=== PATIENT | male | born 1965 | race Hispanic/Latino ===

== ENCOUNTER 2024-03-10 23:52 | Inpatient (IN) | payer SELFPAY ==
[2024-03-11] MEDS ORDERED: NA CHLORIDE 0.9% 1,000 ML ONE ×3 (01:27→12:16)
[2024-03-11 01:30] LABS: Absolute Eosinophils 0.1 K/uL (0-0.5); Absolute Lymphocytes (CBC) 0.7 K/uL (0.7-4.9); Absolute Monocytes 0.8 K/uL (0.1-1.3); Absolute Neutrophil 12.5 K/uL (1.8-8.0); Basophils % 0.2 % (0-1.3); Eosinophils % 0.5 % (0-4.4); Hemoglobin 13.3 g/dL (13.6-17.9); Lymphocytes % 4.7 % (15.3-44.8); MCH 23.9 pg (27.0-35.0); MCV 77.2 fL (80-100); MPV 9.6 fL (7.6-11.3); Neutrophils % 88.6 % (41.7-73.7); Platelets 249 thou/uL (152-406); RBC Red Blood Cell Count 5.57 M/uL (4.33-5.43); Red Cell Distribution Width 14.4 % (12.1-15.2)
[2024-03-11 01:45] LABS: ALT/SGPT 38 U/L (16-61); AST/SGOT 13 U/L (15-37); Albumin 3.6 g/dL (3.4-5.0); Albumin/Globulin Ratio 1.1 (1.1-1.8); Alkaline Phosphatase 81 U/L (45-117); Anion Gap 10.3 mEq/L (5.0-15.0); BUN Blood Urea Nitrogen 20 mg/dL (7-18); Bicarbonate 27 mEq/L (21-32); Bilirubin Total 0.3 mg/dL (0.2-1.0); Creatine Phosphokinase 99 U/L (39-308); Globulin 3.3 g/dL (2.3-3.5); Glomerular Filtration Rate 60 ml/min (=/>90); Glucose Level 336 mg/dL (74-106); Potassium 4.3 mEq/L (3.5-5.1); Protein, Total 6.9 g/dL (6.4-8.2); Sodium Level 136 mEq/L (136-145); Troponin High Sensitivity 3.7 pg/mL (<58.9)
[2024-03-11 02:03] LABS: Bilirubin Direct < 0.2 mg/dL (0-0.2); Bilirubin Indirect, Calculated 0.1 mg/dL (0.2-0.8)
[2024-03-11 02:22] LABS: Band Neutrophils 22 % (0-1); Blood Morphology Comment NOT SEEN (NOT SEEN); Differential Total Cells Count 100; Lymphocytes 8 % (15-42); Monocytes 6 % (0-10); Platelet Estimate ADEQ; Segmented Neutrophils 64 % (40-80)
[2024-03-11 02:44] LABS: PT Prothrombin Time 10.6 SECONDS (9.4-12.5); Protime INR 0.94
[2024-03-11] MEDS ORDERED: PIPERACIL/TAZO 3.375 GM VIAL IV ONE (03:40)
[2024-03-11] MEDS ORDERED: NA CHLORIDE 0.9% 100 ML ONE (03:40)
--- NOTE | 2024-03-11 04:25 | RAD REPORT ---
CT CHEST ABDOMEN PELVIS WITH IV CONTRAST CLINICAL INDICATIONS: Bandemia, vomiting COMPARISON: None TECHNIQUE: CT images of the chest, abdomen and pelvis were obtained following administration of intra venous contrast. Multiplanar reformats were provided. Dose lowering techniques such as automated exposure control, iterative reconstruction, and mA and/or kV adjustment for patient size was utilized for this examination. CHEST FINDINGS: LOWER NECK: Unremarkable. AIRWAYS: Trachea and mainstem bronchi are patent. LUNGS/PLEURA: Mild dependent changes at bilateral lower lobes. No focal air space consolidation, mass , or nodules present. No pleural effusions or pneumothorax. VASCULATURE: No evidence of thoracic aortic aneurysm or dissection. MEDIASTINUM/NODES: No pathologic adenopathy. HEART: Normal heart size. No pericardial effusion. OSSEOUS/CHEST WALL: No acute findings. No compression deformity. ABDOMEN/PELVIS FINDINGS: LIVER: Unremarkable. BILIARY: Unremarkable. PANCREAS: Unremarkable. SPLEEN: Unremarkable. ADRENALS: Unremarkable. KIDNEYS/URETERS: Unremarkable. BOWEL/STOMACH: Sigmoid diverticulosis. Mild circumferential wall thickening at mid sigmoid colon and hepatic flexure with minimal pericolonic stranding. Fluid diffusely in small bowel and colon. There is mild circumferential wall thickening of several small bowel loops. Overall findings are suspicious for mild enterocolitis. Normal appendix. No bowel obstruction. MESENTERY/PERITONEUM: No significant mesenteric stranding. No free fluid or free air. No focal collec tion. LYMPH NODES: Unremarkable. URINARY BLADDER: Unremarkable. REPRODUCTIVE: Unremarkable. VASCULAR: No evidence of aortic aneurysm. ABDOMINAL/PELVIC WALL: Small fat containing umbilical hernia. BONES: No acute findings. No compression deformity, nor osteolytic or sclerotic lesion. IMPRESSION: 1. Suspected mild enterocolitis, as described. 2. No acute findings in CT chest. Electronically signed by: Bhavna Pritchett MD 03/11/2024 04:21 AM [facility] Due to temporary technical issues with the PACS/[employer] reporting system, reports are being melissa d by the in-house radiologist without review as a courtesy to ensure prompt reporting the interpreting radiologist is fully responsible for the content of the report. Transcribed Date/Time: 03/11/2024 4:25 AM
--- NOTE | 2024-03-11 06:42 | ER ---
Nurse's Notes [facility] Name: Arnulfo York Jr Age: 58 yrs Sex: Male : 1965 Arrival Date: 03/10/2024 Time: 23:52 Bed 18 Private MD: Diagnosis: Near syncope;Enteritis;Bandemia Presentation: 03/11 00:11 Chief complaint: Patient states: started vomiting after eating dinner, now feel dizzy, vc1 exhausted and dehydrated. Coronavirus screen: Client denies travel out of the [place] in the last 14 days. At this time, the client does not indicate any symptoms associated with coronavirus-19. Ebola Screen: Patient negative for fever greater than or equal to 101.5 degrees Fahrenheit, and additional compatible Ebola Virus Disease symptoms Patient denies exposure to infectious person. Patient denies travel to an Ebola-affected area in the 21 days before illness onset. No symptoms or risks identified at this time. Initial Sepsis Screen: Does the patient meet any 2 criteria? No. Patient's initial sepsis screen is negative. Does the patient have a suspected source of infection? No. Patient's initial sepsis screen is negative. Risk Assessment: Do you want to hurt yourself or someone else? Patient reports no desire to harm self or others. Onset of symptoms was March 10, 2024 at 21:15. Care prior to arrival: None. Activity prior to arrival: vomiting. 00:11 Method Of Arrival: Ambulatory vc1 00:11 Acuity: SIDNEY 3 vc1 00:17 Note Pt states when he fell he was foaming at the mouth. vc1 Historical: - Allergies: 00:13 No Known Allergies; vc1 - Home Meds: 00:13 None [Active]; vc1 - PMHx: 00:13 None; vc1 - PSHx: 00:13 None; vc1 - Immunization history:: Client reports receiving the 2nd dose of the Covid vaccine, Flu vaccine is not up to date. - Infectious Disease History:: Denies. - Social history:: Smoking status: Patient reports the use of cigarette tobacco products, denies chronic smoking, but will smoke occasionally, Patient uses street drugs, cocaine, marijuana, thc gummies. Screenin:15 [facility] ED Fall Risk Assessment (Adult) History of falling in the last 3 months, vc1 including since admission Yes- physiologic fall (2 pts) Confusion or Disorientation No (0 pts) Intoxicated or Sedated Yes (3 pts) Impaired Gait No (0 pts) Mobility Assist Device Used No (0 pt) Altered Elimination No (0 pt) Score/Fall Risk Level 3 or more points = High Risk Oriented to surroundings, Maintained a safe environment, Educated pt \T\ family on fall prevention, incl call for assistance when getting out of bed, Hourly rounding (assess needs \T\ fall precautionary measures) done, Remained with patient while ambulating, Utilized family, sitter, or virtual product development intern as indicated. Abuse screen: Denies threats or abuse. Nutritional screening: No deficits noted. Tuberculosis screening: No symptoms or risk factors identified. Assessment: 01:20 General: Appears in no apparent distress. Behavior is calm. Pain: Denies pain. Neuro: rg5 Level of Consciousness is awake, alert, obeys commands, Oriented to person, place, time. Cardiovascular: Patient's skin is warm and dry. 01:20 Respiratory: Airway is patent Trachea midline Respiratory effort is even, unlabored, rg5 Respiratory pattern is regular, symmetrical. GI: Abdomen is round non-distended, Bowel sounds present X 4 quads. Abd is soft and non tender Reports diarrhea, vomiting. 01:20 : No signs and/or symptoms were reported regarding the genitourinary system. EENT: No rg5 deficits noted. 01:20 Derm: Skin is intact, Skin is dry, Skin is normal. Musculoskeletal: Circulation, rg5 motion, and sensation intact. Range of motion: intact in all extremities. 02:30 Reassessment: Patient and/or family updated on plan of care and expected duration. Pain rg5 level reassessed. Patient is alert, oriented x 3, equal unlabored respirations, skin warm/dry/pink. Patient states feeling better. 03:30 Reassessment: Patient and/or family updated on plan of care and expected duration. Pain rg5 level reassessed. Patient is alert, oriented x 3, equal unlabored respirations, skin warm/dry/pink. 04:25 Reassessment: Patient and/or family updated on plan of care and expected duration. Pain rg5 level reassessed. Patient is alert, oriented x 3, equal unlabored respirations, skin warm/dry/pink. 05:32 Reassessment: Patient and/or family updated on plan of care and expected duration. Pain rg5 level reassessed. Patient is alert, oriented x 3, equal unlabored respirations, skin warm/dry/pink. Patient states symptoms have improved. 06:22 Reassessment: Patient and/or family updated on plan of care and expected duration. Pain rg5 level reassessed. Patient is alert, oriented x 3, equal unlabored respirations, skin warm/dry/pink. General: Appears in no apparent distress. comfortable, Behavior is calm, cooperative. Respiratory: Airway Trachea midline Respiratory effort is even, unlabored, Respiratory pattern is regular, symmetrical. 16:42 General:. me1 Vital Signs: 00:11 BP 112 / 78; Pulse 89; Resp 15; Pulse Ox 98% ; Weight 86.18 kg; Height 5 ft. 9 in. ; vc1 Pain 4/10; 01:15 BP 110 / 72; Pulse 73; Resp 17; Temp 98; Pulse Ox 99% on R/A; Pain 0/10; rg5 02:30 BP 107 / 67; Pulse 72; Resp 17; Pulse Ox 98% on R/A; rg5 03:20 BP 121 / 92; Pulse 76; Resp 17; Pulse Ox 97% on R/A; rg5 04:23 BP 110 / 75; Pulse 78; Resp 18; Pulse Ox 98% on R/A; rg5 05:00 BP 107 / 70; Pulse 82; Resp 17; Pulse Ox 99% on R/A; rg5 06:23 BP 120 / 73; Pulse 79; Resp 16; Pulse Ox 9% ; rg5 00:11 Body Mass Index 28.06 (86.18 kg, 175.26 cm) vc1 00:11 Pain Scale: Adult vc1 01:15 Pain Scale: Adult rg5 Jyothi Coma Score: 01:15 Eye Response: spontaneous(4). Motor Response: obeys commands(6). Verbal Response: rg5 oriented(5). Total: 15. ED Course: 03/10 23:54 Patient arrived in ED. jj6 23:58 Taj Arce MD is Attending Physician. rt 03/11 00:13 Triage completed. vc1 00:15 Arm band placed on left wrist. vc1 00:45 Door closed. Noise minimized. Warm blanket given. rg5 00:59 Daryl Haines, RN is Primary Nurse. rg5 01:15 Patient has correct armband on for positive identification. Bed in low position. Call rg5 light in reach. Side rails up X 1. 01:15 No provider procedures requiring assistance completed. rg5 01:21 Inserted saline lock: 22 gauge in right antecubital area, using aseptic technique. oe Blood collected. Flushed with 10 mL NS. 03:28 Chest Abdomen Pelvis W Cont In Process Unspecified. EDMS 03:30 First set of blood cultures drawn by me. oe 03:48 Second set of blood cultures drawn by me. oe 06:41 Otoniel Spain is Hospitalizing Provider. rt 12:43 243 CM met with at the bedside in the ED exam room. Patient identified by ane name and . Demographic sheet confirmed. Changes sent to appropriate personnel. PCP NONE. No MPOA in place. Patient states he lives alone in a ground floor apartment. He reports that prior to admission, he performs ADLs independently. No DME, no HH, no home oxygen or other medical services at this time. Patient confirms he does not carry medical insurance at this time; Community Resource packet and local PCP list provided to patient. Patient's plan is to return home upon discharge and states his girlfriend Kellen can transport him home. CM team will continue to follow and coordinate care during this hospital stay. 16:43 Provided Education on: POC. Verbalized understaanding.. me1 16:43 Patient admitted, IV remains in place. me1 Administered Medications: 01:38 Drug: NS 0.9% IV 1000 ml IV at 1000 ml once; to be given as a bolus over 60 minutes rg5 Route: IV; Rate: 1000 ml; Site: right antecubital; 02:56 Follow up: IV Status: Completed infusion; IV Intake: 1000ml rg5 03:08 Follow up: IV Status: Completed infusion; IV Intake: 1000ml rg5 03:50 Drug: Piperacillin-Tazobactam IVPB 3.375 grams IVPB once over 60 mins; (mix in NS 100 rg5 mL) Route: IVPB; Infused Over: 60 mins; Site: right antecubital; 05:26 Follow up: IV Status: Completed infusion; IV Intake: 100ml rg5 05:25 Drug: NS 0.9% IV 1000 ml IV at 1000 ml once; to be given as a bolus over 60 minutes rg5 Route: IV; Rate: 1000 ml; Site: right antecubital; 16:37 Follow up: IV Status: Completed infusion me1 Medication: 01:15 VIS not applicable for this client. rg5 Intake: 02:56 IV: 1000ml; Total: 1000ml. rg5 03:08 IV: 1000ml; Total: 2000ml. rg5 05:26 IV: 100ml; Total: 2100ml. rg5 Outcome: 06:42 Decision to Hospitalize by Provider. rt 16:43 Admitted to Tele accompanied by tech, via wheelchair, room 425, with chart, Report me1 called to faxed, receipt confirmed with Marline 16:43 Condition: stable 16:43 Instructed on the need for admit, 17:18 Patient left the ED. me1 Signatures: Dispatcher [employer] Jevon Rojas Jennifer [email or web address] Cristal Parson RN RN vc1 Taj Arce MD MD rt Ariela Winters RN RN me1 Daryl Haines RN RN rg5 Radha Wolf RN RN ane
--- NOTE | 2024-03-11 06:42 | EDPHYS ---
Physician Documentation [facility] Name: Arnulfo York Jr Age: 58 yrs Sex: Male : 1965 Arrival Date: 03/10/2024 Time: 23:52 Bed 18 Private MD: ED Physician Taj Arce HPI: 03/11 01:15 This 58 yrs old Male presents to ER via Ambulatory with complaints of Dizziness, rt Nausea/Vomiting, SIGNIFICANT OTHER STATES THAT HE HAS BEEN CONSUMING MARIJUANA AND SHE SUSPECTS COCAINE WELL, Syncope. 01:15 Patient presents to the ED with dizziness, described as lightheadedness. Patient states rt that he ate at [employer] tonight, stated that he subsequently developed nausea, vomiting, diarrhea. States that dizzy after drinking red bull following this. Patient did not report or lose consciousness. Has been taking THC Gummies, reportedly did cocaine tonight. Symptoms are moderate in severity, no other aggravating or alleviating factors.. Historical: - Allergies: 00:13 No Known Allergies; vc1 - Home Meds: 00:13 None [Active]; vc1 - PMHx: 00:13 None; vc1 - PSHx: 00:13 None; vc1 - Immunization history:: Client reports receiving the 2nd dose of the Covid vaccine, Flu vaccine is not up to date. - Infectious Disease History:: Denies. - Social history:: Smoking status: Patient reports the use of cigarette tobacco products, denies chronic smoking, but will smoke occasionally, Patient uses street drugs, cocaine, marijuana, thc gummies. ROS: 01:16 Constitutional: Negative for fever, chills, and weight loss, Cardiovascular: Negative rt for chest pain, palpitations, and edema, Respiratory: Negative for shortness of breath, cough, wheezing, and pleuritic chest pain, MS/Extremity: Negative for injury and deformity, Skin: Negative for injury, rash, and discoloration, 01:16 Abdomen/GI: Positive for nausea, vomiting, and diarrhea, Negative for abdominal pain, 01:16 Neuro: Positive for near syncope, Negative for loss of consciousness, Exam: 01:16 Constitutional: This is a well developed, well nourished patient who is awake, alert, rt and in no acute distress. Head/Face: Normocephalic, atraumatic. Chest/axilla: Normal chest wall appearance and motion. Nontender with no deformity. No lesions are appreciated. Cardiovascular: Regular rate and rhythm with a normal S1 and S2. No gallops, murmurs, or rubs. Normal PMI, no JVD. No pulse deficits. Respiratory: Lungs have equal breath sounds bilaterally, clear to auscultation and percussion. No rales, rhonchi or wheezes noted. No increased work of breathing, no retractions or nasal flaring. Abdomen/GI: Soft, non-tender, with normal bowel sounds. No distension or tympany. No guarding or rebound. No evidence of tenderness throughout. Skin: Warm, dry with normal turgor. Normal color with no rashes, no lesions, and no evidence of cellulitis. MS/ Extremity: Pulses equal, no cyanosis. Neurovascular intact. Full, normal range of motion. Neuro: Awake and alert, GCS 15, oriented to person, place, time, and situation. Cranial nerves II-XII grossly intact. Motor strength 5/5 in all extremities. Sensory grossly intact. Cerebellar exam normal. Normal gait. 01:16 ECG was reviewed by the Attending Physician. Vital Signs: 00:11 BP 112 / 78; Pulse 89; Resp 15; Pulse Ox 98% ; Weight 86.18 kg; Height 5 ft. 9 in. ; vc1 Pain 4/10; 01:15 BP 110 / 72; Pulse 73; Resp 17; Temp 98; Pulse Ox 99% on R/A; Pain 0/10; rg5 02:30 BP 107 / 67; Pulse 72; Resp 17; Pulse Ox 98% on R/A; rg5 03:20 BP 121 / 92; Pulse 76; Resp 17; Pulse Ox 97% on R/A; rg5 04:23 BP 110 / 75; Pulse 78; Resp 18; Pulse Ox 98% on R/A; rg5 05:00 BP 107 / 70; Pulse 82; Resp 17; Pulse Ox 99% on R/A; rg5 06:23 BP 120 / 73; Pulse 79; Resp 16; Pulse Ox 9% ; rg5 00:11 Body Mass Index 28.06 (86.18 kg, 175.26 cm) vc1 00:11 Pain Scale: Adult vc1 01:15 Pain Scale: Adult rg5 Jyothi Coma Score: 01:15 Eye Response: spontaneous(4). Motor Response: obeys commands(6). Verbal Response: rg5 oriented(5). Total: 15. MDM: 00:08 Medical Screening Exam initiated rt 05:13 Post IV fluid administration reassessment for Sepsis: Sepsis focused reassessment rt complete. Focused assessment performed: March 11, 2024 at 02:30 Heart: Regular rate/rhythm. Lungs: noted to be clear bilaterally. Capillary refill examination performed. Capillary refill noted to be brisk. Neuro: Patient's neurological exam has improved from previous exam. Cardio: Cardiovascular exam improved from previous exam. Heart rate and blood pressure have improved. 06:47 Differential diagnosis: Dysrhythmia, dehydration, enteritis. Data reviewed: vital rt signs, nurses notes, lab test result(s), EKG, radiologic studies. Consideration of Admission/Observation Patient was admitted/placed on observation. Management of patient was discussed with the following: Hospitalist: Agrees to admit. I considered the following discharge prescriptions or medication management in the emergency department Medications were administered in the Emergency Department. See MAR. Independent interpretation of the following test(s) in the Emergency Department CT Scan: My interpretation is No bowel obstruction syndrome interpretation of CT scan images. Counseling: I had a detailed discussion with the patient and/or guardian regarding the historical points, exam findings, and any diagnostic results supporting the discharge/admit diagnosis, lab results, radiology results, the need for further work-up and treatment in the hospital. Response to treatment: the patient's symptoms have markedly improved after treatment. ED course: Patient initially met sirs criteria with bandemia, infectious source was not identified until enteritis was found on CT scan, that time, cultures, antibiotics were ordered.. 03/11 00:14 Order name: Basic Metabolic Panel; Complete Time: 02: rt 03/11 00:14 Order name: CBC with Diff; Complete Time: rt 03/11 00:14 Order name: LFT's; Complete Time: : rt 03/11 00:14 Order name: Magnesium; Complete Time: : rt 03/11 00:14 Order name: Troponin HS; Complete Time: : rt 03/11 00:14 Order name: CPK; Complete Time: 02: rt 03/11 01:34 Order name: Manual Differential; Complete Time: EDMS 03/11 02:35 Order name: Blood Culture Adult (2) rt 03/11 02:35 Order name: Lactate w/ 2H reflex if indic.; Complete Time: 05:13 rt 03/11 02:35 Order name: Protime (+inr); Complete Time: 04:25 rt 03/11 02:35 Order name: Ptt, Activated; Complete Time: 04:25 rt 03/11 02:37 Order name: UAM rt 03/11 03:49 Order name: Glucose, Ancillary Testing; Complete Time: 04:25 EDMS 03/11 06:34 Order name: Ghost Lactate-NO COLLECT Timer EDMS 03/11 07:35 Order name: Lactate Sepsis 2 HR Follow-up EDMS 03/11 07:58 Order name: Hemoglobin A1c EDMS 03/11 07:58 Order name: T4 Free EDMS 03/11 07:58 Order name: Thyroid Stimulating Hormone EDMS 03/11 07:58 Order name: Basic Metabolic Panel EDMS 03/11 07:58 Order name: Basic Metabolic Panel EDMS 03/11 07:58 Order name: Basic Metabolic Panel EDMS 03/11 07:58 Order name: Basic Metabolic Panel EDMS 03/11 07:58 Order name: Basic Metabolic Panel EDMS 03/11 07:58 Order name: Basic Metabolic Panel EDMS 03/11 07:58 Order name: Basic Metabolic Panel EDMS 03/11 07:58 Order name: Basic Metabolic Panel EDMS 03/11 07:58 Order name: CBC with Automated Diff EDMS 03/11 07:58 Order name: CBC with Automated Diff EDMS 03/11 07:58 Order name: CBC with Automated Diff EDMS 03/11 07:58 Order name: CBC with Automated Diff EDMS 03/11 07:58 Order name: CBC with Automated Diff EDMS 03/11 07:58 Order name: CBC with Automated Diff EDMS 03/11 07:58 Order name: CBC with Automated Diff EDMS 03/11 07:58 Order name: CBC with Automated Diff EDMS 03/11 07:58 Order name: Lipid Profile EDMS 03/11 07:58 Order name: Lipid Profile EDMS 03/11 07:58 Order name: Magnesium EDMS 03/11 07:58 Order name: Magnesium EDMS 03/11 07:58 Order name: Magnesium EDMS 03/11 07:58 Order name: Magnesium EDMS 03/11 07:58 Order name: Magnesium EDMS 03/11 07:58 Order name: Magnesium EDMS 03/11 07:58 Order name: Magnesium EDMS 03/11 07:58 Order name: Magnesium EDMS 03/11 07:58 Order name: Phosphorus EDMS 03/11 07:58 Order name: Phosphorus EDMS 03/11 07:58 Order name: Phosphorus EDMS 03/11 07:58 Order name: Phosphorus EDMS 03/11 07:58 Order name: Phosphorus EDMS 03/11 07:58 Order name: Phosphorus EDMS 03/11 07:58 Order name: Phosphorus EDMS 03/11 07:58 Order name: Phosphorus EDMS 03/11 07:58 Order name: Troponin High Sensitivity EDMS 03/11 07:58 Order name: Troponin High Sensitivity EDMS 03/11 07:58 Order name: Troponin High Sensitivity EDMS 03/11 11:44 Order name: Lactate w/ 2H reflex if indic. EDMS 03/11 12:22 Order name: Glucose, Ancillary Testing EDMS 03/11 12:45 Order name: Urine Drug Screen EDMS 03/11 13:44 Order name: Ghost Lactate-NO COLLECT Timer EDMS 03/11 15:00 Order name: Lactate Sepsis 2 HR Follow-up EDMS 03/11 16:22 Order name: Glucose, Ancillary Testing EDMS 03/11 03:16 Order name: Chest Abdomen Pelvis W Cont EDMS 03/11 00:14 Order name: Cardiac monitoring; Complete Time: 01:38 rt 03/11 00:14 Order name: EKG - Nurse/Tech; Complete Time: 01:38 rt 03/11 00:14 Order name: IV Saline Lock; Complete Time: 01:38 rt 03/11 00:14 Order name: Labs collected and sent; Complete Time: 01:38 rt 03/11 00:14 Order name: O2 Per Protocol; Complete Time: 01:38 rt 03/11 00:14 Order name: O2 Sat Monitoring; Complete Time: 01:38 rt 03/11 02:35 Order name: Accucheck; Complete Time: 03:37 rt 03/11 02:35 Order name: IV Saline Lock - Large Bore; Complete Time: 02:55 rt 03/11 02:35 Order name: Vital Signs; Complete Time: 02:56 rt EC:16 Rate is 67 beats/min. Rhythm is regular, Normal Sinus Rhythm with No ectopy. QRS [place] rt is Normal. OR interval is normal. QRS interval is normal. QT interval is normal. No Q waves. T waves are Normal. No ST changes noted. Interpreted by me. Administered Medications: 01:38 Drug: NS 0.9% IV 1000 ml IV at 1000 ml once; to be given as a bolus over 60 minutes rg5 Route: IV; Rate: 1000 ml; Site: right antecubital; 02:56 Follow up: IV Status: Completed infusion; IV Intake: 1000ml rg5 03:08 Follow up: IV Status: Completed infusion; IV Intake: 1000ml rg5 03:50 Drug: Piperacillin-Tazobactam IVPB 3.375 grams IVPB once over 60 mins; (mix in NS 100 rg5 mL) Route: IVPB; Infused Over: 60 mins; Site: right antecubital; 05:26 Follow up: IV Status: Completed infusion; IV Intake: 100ml rg5 05:25 Drug: NS 0.9% IV 1000 ml IV at 1000 ml once; to be given as a bolus over 60 minutes rg5 Route: IV; Rate: 1000 ml; Site: right antecubital; 16:37 Follow up: IV Status: Completed infusion me1 Disposition Summary: 03/11/24 06:42 Hospitalization Ordered Notes: Hospitalization Status: Inpatient Admission rt Provider: Otoniel Spain rt Condition: Fair rt Problem: new rt Symptoms: have improved rt Bed/Room Type: Standard rt Location: Telemetry/MedSurg (Inpatient)(03/11/24 16:22) [facility] Room Assignment: 425(03/11/24 16:22) [facility] Diagnosis - Near syncope rt - Enteritis rt - Bandemia rt Forms: - Medication Reconciliation Form rt - SBAR form rt - Leadership Thank You Letter rt Signatures: Dispatcher [employer] EDHaven Berrios Jose, RN RN ja1 Cristal Parson RN RN vc1 Taj Arce MD MD rt Daryl Haines RN RN rg5 Ariela Winters RN me1 Corrections: (The following items were deleted from the chart) 00:15 00:14 BASIC METABOLIC PANEL+C.LAB.BRZ ordered. EDMS EDMS 00:15 00:14 CBC+H.LAB.BRZ ordered. EDMS EDMS 00:15 00:14 HEPATIC FUNCTION+C.LAB.BRZ ordered. EDMS EDMS 00:15 00:14 MAGNESIUM+C.LAB.BRZ ordered. EDMS EDMS 00:15 00:14 Troponin High Sensitivity+C.LAB.BRZ ordered. EDMS EDMS 00:15 00:14 CREATINE PHOSPHOKINASE+C.LAB.BRZ ordered. EDMS EDMS 03:16 02:35 Chest Abdomen W/ Con+CT.RAD.BRZ ordered. EDMS EDMS 09:48 06:42 Telemetry/MedSurg (Inpatient) rt bd 09:48 06:42 rt bd 16:22 09:48 [facility] ER HOLD bd ja1 16:22 09:48 ERHOLD- bd ja1
[2024-03-11] MEDS ORDERED: ACETAMINOPHEN 325 MG TABLET PO PRN (07:50)
[2024-03-11] MEDS ORDERED: SODIUM CHLORIDE 0.9% 10ML INJ IV PRN (07:50)
[2024-03-11] MEDS ORDERED: ONDANSETRON 4 MG/2 ML VIAL IV PRN (07:50)
--- NOTE | 2024-03-11 07:59 | P.HP ---
Certification for Inpatient Patient admitted to: Inpatient With expected LOS: >2 Midnights Patient will require the following post-hospital care: None Practitioner: I am a practitioner with admitting privileges, knowledge of patient current condition, hospital course, and medical plan of care. Services: Services provided to patient in accordance with Admission requirements found in Title 42 Section 412.3 of the Code of Federal Regulations Patient History Date of Service: 03/11/24 Reason for admission: Acute enteritis History of Present Illness: Arnulfo York is a 58 year old male with no reports past medical history who presents to the ED with chief complaint of abdominal cramping and vomiting. He reports going to the [facility] last night and not feeling bad until he arrived home. He reports vomiting and feeling dizzy. On examination, he is sleeping, generalized abdominal cramping, denies nausea since arrival. Laboratory evaluation WBC 14.10, BUN/Creatinine 20/1.37, GFR 60, Serum glucose 336, Lactic acid 3.0. CT chest/abd/pelvis reports "Suspected mild enterocolitis". Vitals stable Arnulfo will be admitted to hospitalist service for further treatment of acute enteritis. Allergies No Known Allergies Allergy (Verified 03/11/24 16:54) Home Medications: NK [No Home Meds] 03/11/24 - Past Medical/Surgical History Past Medical History: Patient denies medical history Past Surgical History: Patient denies surgical history - Family History Family History: Reviewed- Non-Contributory - Social History Smoking Status: Never smoker Alcohol use: Yes CD- Drugs: No Review of Systems Gastrointestinal: Vomiting, Abdominal Pain (cramping) Neurological: Other (dizziness) Physical Examination - Physical Exam General: Alert, In no apparent distress, Oriented x3 HEENT: Atraumatic, Normocephalic, PERRLA Neck: Supple, 2+ carotid pulse no bruit Respiratory: Clear to auscultation bilaterally, Normal air movement Cardiovascular: No edema, Normal pulses, Regular rate/rhythm, Normal S1 S2 Capillary refill: <2 Seconds Gastrointestinal: Normal bowel sounds, Soft and benign Musculoskeletal: No clubbing Integumentary: No rashes Neurological: Normal gait - Studies Laboratory Data (last 24 hrs) 03/11/24 03/11/24 03/11/24 01:17 01:17 01:17 WBC 14.10 H Hgb 13.3 L Hct 43.0 Plt Count 249 PT 10.6 INR 0.94 APTT 28.0 Sodium 136 Potassium 4.3 BUN 20 H Creatinine 1.37 H Glucose 336 H Magnesium 2.0 Total Bilirubin 0.3 AST 13 L ALT 38 Alkaline Phosphatase 81 Assessment and Plan - Plan Assessment and plan Acute enteritis Lactic acidosis Leukocytosis nausea/vomiting -cipro/flagyl -Protonix Q12 -Follow blood cultures -zofran -PRN Tylenol -CLD, will advance as tolerating Hyperglycemic -A1C 9.3 -Accucheck with SSI DVT ppx heparin Full code LOS 2 days Discharge Plan: Home Plan to discharge in: 48 Hours - Advance Directives Does patient have a Living Will: No Does patient have a Durable POA for Healthcare: No
[2024-03-11] MEDS: NA CHLORIDE 0.9% 1,000 ML IV SCH (08:00)
[2024-03-11 08:39] LABS: Thyroid Stimulating Hormone 1.58 uIU/mL (0.358-3.740)
--- NOTE | 2024-03-11 08:50 | EKG ---
Test Date: 2024-03-11 Test Time: 01:04:25 Machine Binder Stripper: ANN MEASUREMENT RESULTS: Intervals: Rate: 67 [place]: 116 QRSD: 88 QT: 432 QTc: 456 [place]: P: 36 NJ: 116 QRS: 81 T: 31 INTERPRETIVE STATEMENTS: Normal sinus rhythm Normal ECG No previous ECG available for comparison Electronically Signed On 03-11-24 08:49:24 BROTH SETTER by Victoriano Bronson
[2024-03-11] MEDS: HEPARIN 5000 UNIT/ML 1 ML VIAL SQ SCH (09:00)
[2024-03-11] MEDS: METRONIDAZOLE 500mg IVPB 500 MG/100 ML BAG IV SCH (09:00)
[2024-03-11] MEDS: Ciprofloxacin 200mg IV 200 MG/100 ML IV.SOLN. IV SCH (09:00)
[2024-03-11] MEDS: PANTOPRAZOLE 40 MG INJ IVP SCH (09:00)
[2024-03-11] MEDS ORDERED: Ciprofloxacin 200mg IV 200 MG/100 ML IV.SOLN. IV ONE (09:45)
[2024-03-11] MEDS ORDERED: PANTOPRAZOLE 40 MG INJ ONE (09:45)
[2024-03-11] MEDS ORDERED: HEPARIN 5000 UNIT/ML 1 ML VIAL ONE ×2 (09:45→16:16)
[2024-03-11] MEDS ORDERED: METRONIDAZOLE 500mg IVPB 500 MG/100 ML BAG IV ONE ×2 (09:46→16:16)
[2024-03-11 10:36] VITALS: BMI 28.0
[2024-03-11] MEDS: INSULIN REGULAR (HUMAN) 100 UNIT/ML SQ SCH (11:30)
[2024-03-11 12:38] LABS: Urine Bilirubin NEGATIVE (Negative); Urine Blood Negative (Negative); Urine Clarity Clear (Clear); Urine Color Light-Yellow (Yellow); Urine Glucose 4+ (Over) (Negative); Urine Ketones TRACE (Negative); Urine Micro Reflex YN NO BILL NO MICROSCOPIC; Urine Nitrite NEGATIVE (Negative); Urine Protein TRACE (Negative); Urine Urobilinogen Normal (Normal)
[2024-03-11 12:39] LABS: Specific Gravity ND (1.005-1.030)
[2024-03-11 12:45] LABS: Barbiturates NEGATIVE (NEGATIVE); Benzodiazepines NEGATIVE (NEGATIVE); Cocaine NEGATIVE (NEGATIVE); METHAMPHETAM NEGATIVE (NEGATIVE); Methadone NEGATIVE (NEGATIVE); Opiates NEGATIVE (NEGATIVE); Phencyclidine NEGATIVE (NEGATIVE); THC Cannibis NEGATIVE (NEGATIVE)
[2024-03-11 17:38] VITALS: O2SAT 9
[2024-03-11] MEDS ORDERED: FLU (Fluarix Triv) TS24-25(6MOS UP)/PF 45 MCG/0.5 ML Syringe IM ONE (18:00)
[2024-03-11] MEDS ORDERED: PNEUMOCOCCAL VACCINE 0.5 ML IMVAC ONE (18:00)
[2024-03-12 04:40] VITALS: BP 120/68; TEMP 98.5
[2024-03-12 07:20] LABS: Absolute Eosinophils 0.2 K/uL (0-0.5); Absolute Lymphocytes (CBC) 2.4 K/uL (0.7-4.9); Absolute Monocytes 0.9 K/uL (0.1-1.3); Absolute Neutrophil 4.3 K/uL (1.8-8.0); Basophils % 0.3 % (0-1.3); Eosinophils % 2.5 % (0-4.4); Hematocrit 37.7 % (39.6-49.0); Hemoglobin 11.6 g/dL (13.6-17.9); Lymphocytes % 30.6 % (15.3-44.8); MCH 24.1 pg (27.0-35.0); MCHC 30.8 g/dL (32.0-36.0); MCV 78.3 fL (80-100); MPV 10.5 fL (7.6-11.3); Monocytes % 11.1 % (3.3-12.3); Neutrophils % 55.5 % (41.7-73.7); Platelets 200 thou/uL (152-406); RBC Red Blood Cell Count 4.81 M/uL (4.33-5.43); Red Cell Distribution Width 14.6 % (12.1-15.2)
[2024-03-12 07:33] LABS: Phosphorus 2.4 mg/dL (2.5-4.9)
--- NOTE | 2024-03-12 09:53 | P.DS ---
Admission Date: 03/11/24 Discharge Date: 03/12/24 Disposition: ROUTINE DISCHARGE Discharge Condition: FAIR Reason for Admission: Acute enteritis Brief History of Present Illness: Diagnosis Acute enteritis Lactic acidosis Leukocytosis nausea/vomiting Hyperglycemic HPI 03/11/24 Arnulfo York is a 58 year old male with no reports past medical history who presents to the ED with chief complaint of abdominal cramping and vomiting. He reports going to the [facility] last night and not feeling bad until he arrived home. He reports vomiting and feeling dizzy. On examination, he is sleeping, generalized abdominal cramping, denies nausea since arrival. Laboratory evaluation WBC 14.10, BUN/Creatinine 20/1.37, GFR 60, Serum glucose 336, Lactic acid 3.0. CT chest/abd/pelvis reports "Suspected mild enterocolitis". Vitals stable Arnulfo will be admitted to hospitalist service for further treatment of acute enteritis. Hospital Course: Arnulfo York is a pleasant 58 year old male with no past medical history who was admitted to the [facility] on 03/11/24 for abdominal pain and vomiting. Arnulfo presented to the ED with chief complaint of abdominal pain and vomiting after eating at [facility]. CT abd pelvis showing enteritis. He has tolerated n.p.o. overnight and advancing to full liquid diet in the morning. Blood sugar remained elevated with A1C of 9.3, he will need to follow up with his PCP for medication management. He has tolerated IV antibiotics, blood cultures negative. He is ambulating independently and hemodynamically stable. On 03/12/24, Arnulfo was seen on morning rounds and deemed medically stable for discharge. Arnulfo was discharged with instructions to schedule follow-up appointments with PCP and Dr. Marin for future colonoscopy. Arnulfo was provided prescriptions for Flagyl and ciprofloxacin. Physical Exam General: Alert and Oriented x3, NAD HEENT: Atraumatic, Normocephalic, PERRLA Neck: Supple, 2+ carotid pulse no bruit Respiratory: Clear to auscultation bilaterally, Normal air movement, on RA Cardiovascular: No edema, Normal pulses, RRR, Normal S1 S2 Capillary refill: <2 Seconds Gastrointestinal: Normal bowel sounds, Soft and benign on palpation Musculoskeletal: No clubbing Integumentary: No rashes Neurological: Normal gait Vital Signs/Physical Exam: Temp Pulse Resp BP Pulse Ox 98.5 F 71 18 120/68 94 03/12/24 04:00 03/12/24 04:00 03/12/24 04:00 03/12/24 04:00 03/12/24 04:00 Laboratory Data at Discharge: WBC 7.80 thou/uL (4.3-10.9) 03/12/24 05:16 Hgb 11.6 g/dL (13.6-17.9) L D 03/12/24 05:16 Hct 37.7 % (39.6-49.0) L 03/12/24 05:16 Plt Count 200 thou/uL (152-406) 03/12/24 05:16 PT 10.6 SECONDS (9.4-12.5) 03/11/24 01:17 INR 0.94 03/11/24 01:17 APTT 28.0 SECONDS (24.3-36.9) 03/11/24 01:17 Sodium 139 mEq/L (136-145) 03/12/24 05:16 Potassium 4.0 mEq/L (3.5-5.1) 03/12/24 05:16 BUN 9 mg/dL (7-18) 03/12/24 05:16 Creatinine 0.92 mg/dL (0.70-1.30) 03/12/24 05:16 Glucose 224 mg/dL (74-106) H 03/12/24 05:16 Phosphorus 2.4 mg/dL (2.5-4.9) L 03/12/24 05:16 Magnesium 2.0 mg/dL (1.6-2.4) 03/12/24 05:16 Total Bilirubin 0.3 mg/dL (0.2-1.0) 03/11/24 01:17 AST 13 U/L (15-37) L 03/11/24 01:17 ALT 38 U/L (16-61) 03/11/24 01:17 Alkaline Phosphatase 81 U/L (45-117) 03/11/24 01:17 Triglycerides 107 mg/dL (<150) 03/11/24 01:17 Cholesterol 244 mg/dL (<200) H 03/11/24 01:17 HDL Cholesterol 55 mg/dL (40-60) 03/11/24 01:17 Cholesterol/HDL Ratio 4.44 03/11/24 01:17 Home Medications: Ciprofloxacin HCl [Cipro 500 MG Tablet] 500 mg PO BID #10 tab 03/12/24 metroNIDAZOLE [Flagyl] 500 mg PO Q8H #15 tab 03/12/24 New Medications: Ciprofloxacin HCl [Cipro 500 MG Tablet] 500 mg PO BID #10 tab metroNIDAZOLE [Flagyl] 500 mg PO Q8H #15 tab Physician Discharge Instructions: 1. Please call and schedule a follow-up appointment with your PCP in 3-5 days - Please follow-up with your PCP for medication refills/adjustments 2. Please call and schedule a follow-up appointment with Dr. Marin for colonoscopy in the future 3. Continue regular diet 4. no activity restrictions 5. Return to the ED if symptoms worsen New medications Ciprofloxacin 500 mg twice daily flagyl 500 mg three times daily Diet: Regular Activity: Ad malachi Followup: Silver Marin MD [ASSOCIATE-ACTIVE - CAN ADMIT] -
== END 2024-03-12 11:10 | disposition home or self-care (01) | DRG 392 ==
LOC: ER 23:52 → ERHOLD 03-11 07:50 → 4TH 03-11 16:41
PROVIDERS: ADMIT Internal Medicine; ATTEND Internal Medicine
DX: K52.9 Noninfective gastroenteritis and colitis, unspecified (principal); E87.20 Acidosis, unspecified; D72.829 Elevated white blood cell count, unspecified; R73.9 Hyperglycemia, unspecified
CPT/HCPCS: 36415; 71260; 74177; 80048; 80061; 80076; 80307; 81001; 82550; 82947; 83036; 83605; 83735; 84100; 84439; 84443; 84484; 85025; 85610; 85730; 87040; 93005; 96361; 96365; 96366; 99285; J0744; J1644; J2470; J2543; J7030; Q9967